=== PATIENT | male | born 1955 | race Caucasian/White ===

== ENCOUNTER 2024-07-09 08:00 | Outpatient (AMB) | payer MEDICARE, SELFPAY ==
--- OUTSIDE RECORDS SUMMARY | 2024-07-09 08:02 | XMS_ITS ---
Author Name [facility] Organization Unknown History of Medication Use Medication Directions Dispensed Refills Start Date End Date [facility] HYDROcodone-acetamin ophen (NORCO) 5-325 mg per tablet Take 1 tablet by mouth 4 times daily (every 6 hours) as needed for severe pain. Max Daily Amount: 4 tablets 10/26/2023 active diazepam (VALIUM) 2 MG tablet Take 1 tablet (2 mg total) by mouth 2 times a day. Take one tablet 1hr prior to scheduled MRI. Take a second tablet 30min prior to MRI if needed. 09/19/2023 active methocarbamol (ROBAXIN) 750 MG tablet Take 1 tablet (750 mg total) by mouth 4 (four) times a day as needed for muscle spasms. 02/13/2023 active senna-docusate (sennosides-docusate sodium) 8.6-50 MG Take 2 tablets by mouth nightly. While taking narcotics 02/13/2023 active sertraline (ZOLOFT) 25 MG tablet Take 25 mg by mouth every other day. 02/13/2023 active meloxicam (MOBIC) 15 MG tablet Take 1 tablet (15 mg total) by mouth daily. 02/13/2023 active HYDROmorphone (DILAUDID) 2 MG tablet Take 1-2 tablets (2-4 mg total) by mouth Every 4 (four) to 6 (six) hours as needed for moderate pain or severe pain. Max Daily Amount: 24 mg 02/13/2023 active acetaminophen (TYLENOL) 500 MG tablet Take 2 tablets (1,000 mg total) by mouth 4 times daily (every 6 hours) as needed for mild pain. 02/13/2023 active OMEprazole (PriLOSEC) 40 MG capsule Take 1 capsule (40 mg total) by mouth every morning before breakfast. 02/13/2023 active irbesartan-hydrochlo rothiazide (AVALIDE) 150-12.5 MG per tablet Take 1 tablet by mouth every morning. 02/13/2023 active buPROPion (WELLBUTRIN XL) 150 MG 24 hr tablet Take 150 mg by mouth every morning. Swallow whole; do not crush, chew, or divide. 02/13/2023 active betamethasone acetate-betamethason e sodium phosphate (CELESTONE) injection 3 mg 08/08/2023 completed aspirin enteric coated (ECOTRIN LOW STRENGTH) 81 MG EC tablet Take 1 tablet (81 mg total) by mouth 2 (two) times a day. 02/13/2023 active Problems Problem Status Onset Date Problem Type Date of Resoluti on Source Low back pain active 2023-02-11 ProblemAct [facility] T Retained orthopedic hardware active 2022-01-10 ProblemAct [facility] Pain of right hand active EncounterDiagnosisAct [facility]
--- NOTE | 2024-07-09 08:05 | MHC.OFFVIS ---
Vital Signs 07/09/24 08:10 Height 5 ft 9 in Weight 271 lb BMI 40.0 BP 128/70 Blood Pressure Location Lt brachial Position Sitting Pulse 62 Pulse Source Pulse Oximeter Pulse Oximetry (%) 95 Oxygen Delivery Method Room Air Intake Visit Reasons: 07/06 LVM+Let ENP-JASMYN Allergies lisinopril Allergy (Mild, Verified 07/09/24 08:23) Cough HPI Comments Details: 69 year old male presents for a sleep evaluation per PCP. He says he had a sleep study in 1998, and started using his CPAP immediately, as he was diagnosed with JASMYN. He sleeps on his side and doesn't move at all at night. Goes to bed at 11pm wakes at 6am, 1x bathroom. Denies acid reflux. He doesn't know if he snores, but does wake himself up as he gasps for air in the recliner during his occasional naps. His memory is good, at baseline, denies morning headaches but does have discomfort when he moves his neck. He has some balance and gait issues, r. knee surgery 2023. Denies leg pain,numbness and tingling. No vision changes, wears glasses. He uses nose pillows for breathing at night which dry out the sinuses, sometimes the eyes get itchy and ducts get blocked. He grinds his teeth and wears a retainer at night. Mood is very good, diet is good. Walks about 3 miles every 3rd day. [facility] Medical History (Updated 07/09/24 @ 09:13 by João Enamorado PA-C) Loose right total knee arthroplasty Sleep apnea Severe obesity Rosacea Right trigger finger Prediabetes Osteoarthritis of right knee Left ventricular hypertrophy Kidney stone Impaired fasting glucose Elevated serum creatinine ADHD Anxiety Adenomatous polyp Surgical History (Updated 07/09/24 @ 08:33 by CHETAN Powers) H/O colonoscopy Physical Exam Vital Signs: Last Vital Signs Pulse 62 07/09/24 08:10 BP 128/70 07/09/24 08:10 Pulse Ox 95 07/09/24 08:10 Oxygen Delivery Method Room Air 07/09/24 08:10 BMI result Body Mass Index 40.0 Const General: cooperative, comfortable and no acute distress Nutritional Appearance: obese (BMI is 40) Orientation/consciousness: patient oriented x3 HEENT Face and sinus: Yes normal facial exam and Yes face symmetric Mouth: other ([place] score of 4 ) Teeth and gingiva: other (Wide based tongue) Throat: Yes other Throat image: 1. Eyes Pupils: Equal, round and reactive pupils present Neck Neck: Yes other (Limited ROM on extension) Resp Effort & Inspection: normal respiratory effort and able to speak in complete sentences Neuro General: patient oriented x3 and moves all extremities Cranial nerves: Yes CN's II-XII intact bilaterally, Yes Facial sensation intact/muscles of mastication intact, Yes Equal, round and reactive pupils present, Yes Normal accommodation reflex present, Yes Bilaterally intact EOM present, Yes Nystagmus not present, Yes Normal facial strength present, Yes Midline tongue present, Yes Ability to bilaterally rotate head present (With Limited ROM to the L>R) and Yes Ability to bilaterally elevate shoulders present Cognition (Neuro): normal cognition Gait exam (Neuro): Normal gait present Motor exam (neuro): 5/5 motor strength present throughout, Pronator motor function not present and Normal motor muscle tone present throughout Deep tendon reflexes (DTR's): Right triceps reflex intensity grade: 2+, Left triceps reflex intensity grade: 2+, Rt Biceps (C5, C6): 2+, Left biceps reflex intensity grade: 2+, Right brachioradialis reflex intensity grade: 2+ and Left brachioradialis reflex intensity grade: 2+ Psych Appearance: grossly normal Speech and movement: Normal speech and movement present Affect: normal affect Attitude: cooperative Thought process: Normal thought process present Insight: Good insight present (Psych) Judgement: Good judgement present (Psych) Results Reviewed Results Reviewed: Notes from [facility] Primary Care CKD stage II Hyperlipdemia Hypertension LVHypertrophy Assessment & Plan Assessment & Plan (1) HTN (hypertension): Code(s): I10 - Essential (primary) hypertension Category: Medical Qualifiers: Hypertension type: secondary to other renal disorders Qualified Code(s): I15.1 - Hypertension secondary to other renal disorders (2) Fatigue due to sleep pattern disturbance: Code(s): R53.83 - Other fatigue; G47.9 - Sleep disorder, unspecified Category: Medical (3) Obesity: Code(s): E66.9 - Obesity, unspecified Category: Medical Qualifiers: Body mass index: BMI 40.0-44.9 Obesity type: unspecified obesity type Obesity classification: adult class 3 (BMI >= 40) Serious obesity comorbidity presence: unspecified whether serious comorbidity present Qualified Code(s): E66.813 - Obesity, class 3; E66.01 - Morbid (severe) obesity due to excess calories; Z68.41 - Body mass index [BMI] 40.0-44.9, adult Plan HST Sleep disturbances, JASMYN BMI is elevated will discuss weight management referral next visit. Anxiety Continue with regimen of antidepressants as needed, (Wellbutrin 150mg PO AM, Sertraline 25mg PO daily) Labs: TSH / B12/ Vit D/ CBC CMP A1c monitor prediabetes. Patient Education: #1 RF which is modifiable for Cardiovascular disease is hypertension, maintaining good blood pressure control. (BMI is elevated, discussed healthy food choices, diet and exercise with lifestyle modifications). Coding Level of Care Code New Pt Level 4 (24210) Diagnoses Hypertension secondary to other renal disorders I15.1 Hypertension type: secondary to other renal disorders Fatigue due to sleep pattern disturbance R53.83; G47.9 Class 3 severe obesity with body mass index (BMI) of 40.0 to 44.9 in adult, unspecified obesity type, unspecified whether serious comorbidity present E66.813; E66.01; Z68.41 Body mass index: BMI 40.0-44.9 Obesity type: unspecified obesity type Obesity classification: adult class 3 (BMI >= 40) Serious obesity comorbidity presence: unspecified whether serious comorbidity present Time Spent (min) 40 Sleep Questionnaire Difficulty falling asleep: No Difficulty staying asleep?: No Number of arousals: 0-1 Snoring: Yes Witnessed apneas: Yes Gasping arousals: Yes Nocturia: No GERD: No Vivid dreams: No Acting out dreams: No Abnormal behavior in sleep: No Abnormal movements in sleep: No Morning headaches: No Excessive daytime sleepiness: No Daytime naps: Yes Restless legs: No Hallucinations: No Sleep paralysis: No Sleep Study: Yes (1998) CPAP: Yes (yes) [place] Sleepiness Scale Questions Sitting and reading: would never doze Watching TV: slight chance of dozing Sitting inactive in a theater, movie etc.: slight chance of dozing As a passenger in a car for an hour without break: would never doze Lying down in the afternoon when circumstances permit: slight chance of dozing Sitting and talking to someone: would never doze Sitting quietly after lunch without alcohol: slight chance of dozing In a car, while stopped for a few minutes in the traffic: would never doze ESS < 10: normal, ESS > 12: pathologic: 4
[2024-07-09 08:10] VITALS: BP 128/70; PULSE 62; O2SAT 95; BMI 40.0
== END 2024-07-09 08:53 | disposition home or self-care (01) ==
PROVIDERS: PCP Internal Medicine; Visit Provider Physician Assistant Medical
DX: I15.1 Hypertension secondary to other renal disorders (principal); R53.83 Other fatigue; G47.9 Sleep disorder, unspecified; E66.813 Obesity, class 3; E66.01 Morbid (severe) obesity due to excess calories; Z68.41 Body mass index [BMI] 40.0-44.9, adult
CPT/HCPCS: 99204

== ENCOUNTER → 2024-07-09 08:00 | Outpatient (BNVA) | payer MEDICARE, SELFPAY | PROVIDERS: PCP Internal Medicine; Visit Provider Physician Assistant Medical | DX: I15.1 Hypertension secondary to other renal disorders (principal); R53.83 Other fatigue; G47.9 Sleep disorder, unspecified; E66.813 Obesity, class 3; Z68.41 Body mass index [BMI] 40.0-44.9, adult | CPT/HCPCS: 99202 ==

== ENCOUNTER → 2024-08-26 08:35 | Outpatient (REF) | payer MEDICARE, SELFPAY ==
--- OUTSIDE RECORDS SUMMARY | 2024-08-26 09:04 | XMS_ITS | Clinical Summary ---
Author Organization [facility] it Address [address] [place] [address] Care Team Providers Care Educational Institution President Name Role Phone Unavailable Primary Care Provider Unavailabl e Social History Tobacco Use Types Packs/Day Years Used Date Smoking Tobacco: Never Assessed Sex and Gender Information Value Date Recorded Sex Assigned at Not on file Legal Sex Male 1:56 AM EST Gender Identity Not on file Sexual Orientation Not on file Plan of Treatment Health Maintenance Due Date Last Done Comments DTaP,Tdap,and Td Vaccines (1 - Tdap) 1974 Pneumococcal Vaccine: 50+ Ye ars (1 of 1 - PCV) 2005 Zoster Vaccines (1 of 2) 2005 Abdominal Aortic Aneurysm (A AA) Screen 06/02/2022 Cholesterol Screening (Lipid Panel) 06/02/2022 Colorectal Cancer Screening: Colonoscopy 06/02/2022 Depression Screening 06/02/2022 Falls Risk Assessment 06/02/2022 Hepatitis C Screening 06/02/2022 Social Influencers of Health Screening 06/02/2022 COVID-19 Vaccine ( - 2023-2 5 season) 2024 Influenza Vaccine (#1) 2024 RSV Immunization Patients 60 + Years Old (1 - 1-dose 75+ series) 2030 HIB Vaccines Aged Out No longer eligi ble based on patient's age to complete this topic HPV Vaccines Aged Out No longer eligi ble based on patient's age to complete this topic Hepatitis A Vaccines Aged Out No long er eligible based on patient's age to complete this topic Hepatitis B Vaccines Aged Out No long er eligible based on patient's age to complete this topic IPV Vaccines Aged Out No longer eligi ble based on patient's age to complete this topic MMR Vaccines Aged Out No longer eligi ble based on patient's age to complete this topic Meningococcal ACWY Vaccine Aged Out N o longer eligible based on patient's age to complete this topic Meningococcal B Vacine Aged Out No lo nger eligible based on patient's age to complete this topic RSV Immunization Patients Un jana 20 months Aged Out No longer eligible b ased on patient's age to complete this topic Varicella Vaccines Aged Out No longer eligible based on patient's age to complete this topic
--- OUTSIDE RECORDS SUMMARY | 2024-08-26 09:04 | XMS_ITS | Encounter Summary ---
Author Organization [facility] Address [address] [place] [address] Care Team Providers Care Test Hole Driller Name Role Phone Vadim Conrad MD Primary Care Provider [phone] Aaron Gallegos MD Unavailable [phone] Juventino Oquendo MD Unavailable Encounter Details Date Type Department Care Team (Late st Contact Info) Description 01/23/2022 Erroneous Encounter [facility] DEPT [address] [place] [id number] Provider, MD Nyasia Social History Tobacco Use Types Packs/Day Years Used Date Smoking Tobacco: Never Smokeless Tobacco: Never Alcohol Use Standard Drinks/Week Comments Yes 2 (1 standard drink = 0.6 oz pur e alcohol) AUDIT-C Answer Date Recorded Q1: How often do you have a drink containing alc ohol? 2-3 times a week 12/25/2021 Q2: How many drinks containi ng alcohol do you have on a typical day when you are drinking? 1 or 2 12/25/2021 Q3: How often do you have si x or more drinks on one occasion? Never 12/25/2021 Sex and Gender Information Value Date Recorded Sex Assigned at Not on file Gender Identity Male 01/09/2022 6:13 AM EDT Sexual Orientation Not on file COVID-19 Exposure Response Date Recorded In the last 10 days, have yo u been in contact with someone who was confirmed or suspected to have Coronavirus/COVID-19? No / Unsure 01/10/2022 11:21 AM EDT documented as of this encounter Plan of Treatment Not on file documented as of this encounter Visit Diagnoses Not on filedocumented in this encounter Care Teams Test Hole Driller Relationship Specialty Start Date End Date Vadim Conrad MD [address] [place] [address] PCP - General Internal Medicine 12/25/21 Aaron Gallegos MD [address] [address] Surgery, Orthopedic 12/25/21 Juventino Oquendo MD [facility] [address] [address] Referring Provider Urology 12/28/21 documented as of this encounter
--- OUTSIDE RECORDS SUMMARY | 2024-08-26 09:04 | XMS_ITS | Clinical Summary ---
Author Organization [facility] Address [address] [place] [address] Care Team Providers Care Auxiliary Power Equipment Operator Name Role Phone Vadim Conrad MD Primary Care Provider [phone] Aaron Gallegos MD Unavailable [phone] Juventino Oquendo MD Unavailable Allergies Active Allergy Reactions Criticality Noted Date Comments Lisinopril Cough Low 12/25/2021 Medications Medication Sig Dispensed Refills Start Date End Date Status buPROPion (WELLBUTRIN XL) 150 MG 24 hr tablet Take 150 mg by mouth every morning. Swallow whole; do not crush, chew, or divide. Active irbesartan-hydrochl orothiazide (AVALIDE) 150-12.5 MG per tablet Take 1 tablet by mouth every morning. Active sertraline (ZOLOFT) 25 MG tablet Take 25 mg by mouth every other day. Active HYDROmorphone (DILAUDID) 2 MG tabletIndications:R etained orthopedic hardware Take 1-2 tablets (2-4 mg total) by mouth Every 4 (four) to 6 (six) hours as needed for moderate pain or severe pain. Max Daily Amount: 24 mg 42 tablet 01/11/2022 Active meloxicam (MOBIC) 15 MG tabletIndications:R etained orthopedic hardware Take 1 tablet (15 mg total) by mouth daily. 14 tablet 01/11/2022 Active OMEprazole (PriLOSEC) 40 MG capsuleIndications: Retained orthopedic hardware Take 1 capsule (40 mg total) by mouth every morning before breakfast. 14 capsule 01/11/2022 Active methocarbamol (ROBAXIN) 750 MG tabletIndications:R etained orthopedic hardware Take 1 tablet (750 mg total) by mouth 4 (four) times a day as needed for muscle spasms. 60 tablet 01/11/2022 Active senna-docusate (sennosides-docusat e sodium) 8.6-50 MGIndications:Retai michaelle orthopedic hardware Take 2 tablets by mouth nightly. While taking narcotics 60 tablet 01/11/2022 Active aspirin enteric coated (ECOTRIN LOW STRENGTH) 81 MG EC tabletIndications:R etained orthopedic hardware Take 1 tablet (81 mg total) by mouth 2 (two) times a day. 60 tablet 01/11/2022 Active acetaminophen (TYLENOL) 500 MG tabletIndications:R etained orthopedic hardware Take 2 tablets (1,000 mg total) by mouth 4 times daily (every 6 hours) as needed for mild pain. 112 tablet 01/11/2022 Active diazepam (VALIUM) 2 MG tabletIndications:T oracle applications analyst middle finger of right hand Take 1 tablet (2 mg total) by mouth 2 times a day. Take one tablet 1hr prior to scheduled MRI. Take a second tablet 30min prior to MRI if needed. 4 tablet 09/17/2023 Active HYDROcodone-acetami nophen (NORCO) 5-325 mg per tabletIndications:T oracle applications analyst middle finger of right hand Take 1 tablet by mouth 4 times daily (every 6 hours) as needed for severe pain. Max Daily Amount: 4 tablets 10 tablet 10/20/2023 Active Active Problems Problem Noted Date Diagnosed Date Low back pain 02/11/2023 Retained orthopedic hardware 01/10/2022 Family History Medical History Relation Name Comments Hypertrophic cardiomyopathy Mother Breast cancer Sister Relation Name Status Comments Father (Age 49) Mother Sister Alive Son Alive Social History Tobacco Use Types Packs/Day Years [...] AM EDT Sexual Orientation Not on file Last Filed Vital Signs Vital Sign Reading Time Taken Comments Blood Pressure 146/74 01/11/2022 9:49 AM EDT REKHA Alicia notified Pulse 86 01/11/2022 9:49 AM EDT Temperature 37.6 ??C (99.7 ??F) 01/11/2022 9 :49 AM EDT REKHA Alicia notified Respiratory Rate 20 01/11/2022 9:49 AM EDT Oxygen Saturation 94% 01/11/2022 9:4 9 AM EDT Inhaled Oxygen Concentration - - Weight 116 kg (255 lb) 01/10/2022 5:43 PM EDT Height 170.8 cm (5' 7.25 ) 01/10/2022 5 :43 PM EDT Body Mass Index 39.64 01/10/2022 5:43 PM EDT Plan of Treatment Health Maintenance Due Date Last Done Comments Hepatitis C Virus Screening 1955 DTaP/Tdap/Td Vaccines (1 - Tdap) 1974 Colonoscopy 2000 Pneumococcal Vaccines 50+ (1 of 1 - PCV) 2005 Zoster (Shingles) Vaccine (1 of 2) 2005 Influenza Vaccine 01/29/2024 05/09/2023, , 04/17/2021, Additional history exists COVID-19 Vaccine ( season) 2024 05/09/2023, 11/07/2021, 04/17/2021, Additional history exists RSV Vaccine 60 years and older and Patients (1 - 1-dose 75+ series) 2030 Hepatitis B Vaccines Aged Out No long er eligible based on patient's age to complete this topic Medical Devices Implanted Type Area Musical Instrument Supervisor Device Identifier Shelf Expiration Date Model / Serial / Lot 6191-1-001 Cement Bone Smpx P Radopq Fd Sterl - [id number] Implanted:Qty : 1 on 01/10/2022 by Aaron Gallegos MD at [facility] Cement Right: Knee [employer] 04/29/2024 [id number] / / [id number] Cement Bone Smpx P Radopq Fd Sterl - [id number] Implanted:Qty : 1 on 01/10/2022 by Aaron Gallegos MD at [facility] Cement Right: Knee [employer] 04/29/2024 6191-1-001 / / [id number] Component Patellar 35mm Rsrfc Sangita 2 Knee - [id number] Implanted:Qty : 1 on 01/10/2022 by Aaron Gallegos MD at [facility] Joint Prosthesis Right: Knee [employer] - DIV S 08/25/2031 [id number] / / [id number] Baseplate Tibial Legion 6 Knee Right Cement Male Taper Ti - [id number] Implanted:Qty : 1 on 01/10/2022 by Aaron Gallegos MD at [facility] Joint Prosthesis Right: Knee [employer] - DIV S 07/14/2031 [id number] / / [id number] Articular Insert Implanted:Qty : 1 on 01/10/2022 by Aaron Gallegos MD at [facility] Right: Knee [employer] 11/05/2031 [id number] / / [id number] Femoral Component Implanted:Qty : 1 on 01/10/2022 by Aaron Gallegos MD at [facility] Right: Knee [employer] 11/29/2030 [id number] / / [id number] Advance Directives Documents on File Type Date Recorded Patient Binder Cutter Hand Expl anation Advance Directive-Scan 02/11/2023 PT Advance Directive-Scan 02/11/2023 MEDIC AL HISTORY * Full Code (Latest Code Status on File) Date Activated Date Inactivated Comments 01/10/2022 6:19 PM * Full Code Date Activated Date Inactivated Comments 01/10/2022 11:02 AM 01/10/2022 6:19 PM Care Teams Auxiliary Power Equipment Operator Relationship Specialty Start Date End Date Vadim Conrad MD [address] [place] [address] PCP - General Internal Medicine 12/25/21 Aaron Gallegos MD 31 [facility] [address] [place] [address] Surgery, Orthopedic 12/25/21 Juventino Oquendo MD [address] [place] [address] Referring Provider Urology 12/28/21
--- OUTSIDE RECORDS SUMMARY | 2024-08-26 09:04 | XMS_ITS | Encounter Summary ---
Author Organization [facility] Address [address] [place] [address] Care Team Providers Care Landfill Gas Collection Operator Name Role Phone Vadim Conrad MD Primary Care Provider [phone] Aaron Gallegos MD Unavailable [phone] Juventino Oquendo MD Unavailable Reason for Referral * Outpatient Surgery (Routine) - Closed Specialty Diagnoses / Procedures Referred By Silvio wilkins Referred To Contact Hand Surgery Diagnoses Trigger middle finger of right hand Jimenez Conn MD [address] [place] [address] Referral ID Status Reason Start Date Expiration Date Visits Re quested Visits Authorized [id number] Closed 10/15/2023 10/15/2024 1 1 Question Answer Primary Procedure: [id number] - Trigger finger Additional Procedure(s): None Procedure: RIGHT MIDDLE FINGER STENOSING TENOSYNOVITIS RELEASE Surgery Date 10/21/2023 Laterality: Right Performing Location: [facility] Duration (Mins): 30 Admission: Outpatient Anesthesia: MAC Workers Comp? No Encounter Details Date Type Department Care Team (Late st Contact Info) Description 10/15/2023 [facility] Surg Order [facility] [address] [phone] Jimenez Conn MD [address] [address] Trigger middle finger of right hand (Primary Dx) Social History Tobacco Use Types Packs/Day Years [...] AM EDT Sexual Orientation Not on file documented as of this encounter Plan of Treatment Scheduled Referrals Name Type Priority Associated Diagnoses Order Schedule RIGHT MIDDLE FINGER STENOSING TENOSYNOVITIS RELEASE Outpatient Referral Routine Trigger middle finger of right hand Ordered: 10/15/2023 documented as of this encounter Visit Diagnoses Diagnosis Trigger middle finger of right hand- Primary documented in this encounter Care Teams Landfill Gas Collection Operator Relationship Specialty Start Date End Date Vadim Conrad MD [address] [place] [address] PCP - General Internal Medicine 12/25/21 Aaron Gallegos MD [address] [place] [address] [address] [place] [address] Surgery, Orthopedic 12/25/21 Juventino Oquendo MD [address] [place] [address] Referring Provider Urology 12/28/21 documented as of this encounter
--- OUTSIDE RECORDS SUMMARY | 2024-08-26 09:04 | XMS_ITS | Encounter Summary ---
Author Organization [facility] Address [address] [place] [address] Care Team Providers Care Home Hospice Rn Name Role Phone Vadim Conrad MD Primary Care Provider [phone] Aaron Gallegos MD Unavailable [phone] Juventino Oquendo MD Unavailable Encounter Details Date Type Department Care Team (Late st Contact Info) Description 10/21/2023 Scanned Document [facility] [address] [id number] Jimenez Conn MD [address] [place] [address] [place] [id number] Social History Tobacco Use Types Packs/Day Years [...] on filedocumented in this encounter Care Teams Home Hospice Rn Relationship Specialty Start Date End Date Vadim Conrad MD [address] [facility] [place] [address] PCP - General Internal Medicine 12/25/21 Aaron Gallegos MD 31 [facility] [address] [place] [address] Surgery, Orthopedic 12/25/21 Juventino Oquendo MD [address] [place] [address] Referring Provider Urology 12/28/21 documented as of this encounter
== END ==
LOC: HO.SL 08:35
PROVIDERS: PCP Internal Medicine; Visit Provider Physician Assistant Medical
DX: G47.30 Sleep apnea, unspecified (principal); R53.83 Other fatigue; G47.9 Sleep disorder, unspecified
CPT/HCPCS: 95806

== ENCOUNTER → 2024-08-26 09:05 | Outpatient (BNV) | payer MEDICARE, SELFPAY | PROVIDERS: PCP Internal Medicine; Visit Provider Psychiatry & Neurology Neurology | DX: G47.33 Obstructive sleep apnea (adult) (pediatric) (principal) | CPT/HCPCS: 95806 ==

== ENCOUNTER 2024-10-01 07:33 | Outpatient (AMB) | payer MEDICARE, SELFPAY ==
--- OUTSIDE RECORDS SUMMARY | 2024-10-01 07:35 | XMS_ITS | Clinical Summary ---
Author Organization [facility] Address [address] [place] [address] Care Team Providers Care Management Assistant Name Role Phone Vadim Conrad MD Primary Care Provider [phone] Aaron Gallegos MD Unavailable [phone] Juventino Oquendo MD Unavailable Allergies Active [...] 01/11/2022 Active diazepam (VALIUM) 2 MG tabletIndications:T cardiology rn middle finger of right hand Take 1 tablet (2 mg total) by mouth 2 times a day. Take one tablet 1hr prior to scheduled MRI. Take a second tablet 30min prior to MRI if needed. 4 tablet 09/17/2023 Active HYDROcodone-acetami nophen (NORCO) 5-325 mg per tabletIndications:T cardiology rn middle finger of right hand Take 1 [...] this topic Medical Devices Implanted Type Area Pilot Teacher Device Identifier Shelf Expiration Date Model / Serial / Lot 6191-1-001 Cement Bone Smpx P Radopq Fd Sterl - [id number] Implanted:Qty : 1 on 01/10/2022 by Aaron Gallegos MD at [facility] Cement Right: Knee [employer] - DIV [employer] 04/29/2024 6191-1-001 / / [id number] Cement Bone Smpx P Radopq Fd Sterl - [id number] Implanted:Qty : 1 on 01/10/2022 by Aaron Gallegos MD at [facility] Cement Right: Knee [employer] 04/29/2024 6191-1-001 / / [id number] Component Patellar 35mm Rsrfc Sangita 2 Knee - [id number] Implanted:Qty : 1 on 01/10/2022 by Aaron Gallegos MD at [facility] Joint Prosthesis Right: Knee [employer] - DIV S 08/25/2031 [id number] / / [id number] Baseplate Tibial Legion 6 Knee Right Cement Male Taper Ti - [id number] Implanted:Qty : 1 on 01/10/2022 by Aaron Gallegos MD at [facility] Joint Prosthesis Right: Knee [employer] - DIV S 07/14/2031 [id number] / / [id number] Articular Insert Implanted:Qty : 1 on 01/10/2022 by Aaron Gallegos MD at [facility] Right: Knee [employer] 11/05/2031 [id number] / / [id number] Femoral Component Implanted:Qty : 1 on 01/10/2022 by Aaron Gallegos MD at [facility] Right: Knee [employer] 11/29/2030 [id number] / / [id number] Advance Directives Documents on File Type Date Recorded Patient Contract Manager Expl anation Advance Directive-Scan 02/11/2023 PT Advance Directive-Scan 02/11/2023 MEDIC AL HISTORY * Full Code (Latest Code Status on File) Date Activated Date Inactivated Comments 01/10/2022 6:19 PM * Full Code Date Activated Date Inactivated Comments 01/10/2022 11:02 AM 01/10/2022 6:19 PM Care Teams Management Assistant Relationship Specialty Start Date End Date Vadim Conrad MD [address] [place] [address] PCP - General Internal Medicine 12/25/21 Aaron Gallegos MD [address] [address] Surgery, Orthopedic 12/25/21 Juventino Oquendo MD [address] [place] [address] Referring Provider Urology 12/28/21
--- OUTSIDE RECORDS SUMMARY | 2024-10-01 07:35 | XMS_ITS | Clinical Summary ---
Author Organization [address] [facility] Address [address] [place] [address] Phone Care Team Providers Care Loading Machine Operator Name Role Phone Shannon Aguirre MD Primary Care Provider Encounters Date Type Department Care Team Description 09/30/2024 2:45 PM EDT Evaluation [facility] [address] [address] Neema Chandler, OT Vertigo (Primary Dx) from Last 3 Months Social History Tobacco Use Types Packs/Day Years Used Date Smoking Tobacco: Never Assessed Sex and Gender Information Value Date Recorded Sex Assigned at Male 09/30/2024 3:05 PM EDT Legal Sex Male 1:56 AM EST Gender Identity Male 09/30/2024 3:05 PM EDT Sexual Orientation Straight 09/30/2024 3: 05 PM EDT Plan of Treatment Upcoming Encounters Date Type Department Care Team (Late st Contact Info) Description 10/12/2024 9:00 AM EDT [facility] [address] [address] Neema Chandler, OT Health Maintenance Due Date Last Done Comments Abdominal Aortic Aneurysm (AAA) Screen 06/02/2022 Cholesterol Screening (Lipid Panel) 06/02/2022 Colorectal Cancer Screening: Colonoscopy 06/02/2022 Depression Screening 06/02/2022 Falls Risk Assessment 06/02/2022 Hepatitis C Screening 06/02/2022 Medicare Annual Wellness Visit 06/02/2022 Social Influencers of Health Screening 06/02/2022 Hypertension/CHF/CAD Annual BMP Blood Test 09/30/2024 01/04/2022, 12/26/2021 Pneumococcal Vaccine: 50+ Years (2 of 2 - PCV) 03/22/2025 03/22/2024, 10/12/2018 RSV Immunization Adult Patients (1 - 1-dose 75+ series) 2030 DTaP,Tdap,and Td Vaccines (3 - Td or Tdap) 03/12/2031 03/12/2021, 07/12/2010 Zoster Vaccines Completed 02/28/2018, 10/28, 07/24/2017 COVID-19 Vaccine Completed 08/26/2024, 03/2023, 04/01/2022, Additional history exists Influenza Vaccine Completed 08/26/2024, , 04/01/2022, Additional history exists HIB Vaccines Aged Out No longer eligi [...] to complete this topic RSV Immunization Patients Under 20 months Aged Out No longer eligible based on patient's age to complete this topic Varicella Vaccines Aged Out No longer eligible based on patient's age to complete this topic Goals Goal Patient Goal Type Associated Problems Recent Progress Patient-Stated? Author LTG in 2-3 visits General No Mitzi Chandler, OT Note: Indep HEP w/ progression No subjective dizzy w/ repeat positional testing in clinic 3. No reported dizzy w/ routine activity at home (tilting/turning head to gaze at objects) Insurance [employer] MEDICARE Care Teams Loading Machine Operator Relationship Specialty Start Date End Date Shannon Aguirre MD [address] [place], [place] PCP - General Internal Medicine 09/30/24
--- OUTSIDE RECORDS SUMMARY | 2024-10-01 07:35 | XMS_ITS | Encounter Summary ---
Author Organization [facility] Address [address] [place] [address] Care Team Providers Care Ground Support Agent Name Role Phone Vadim Conrad MD Primary Care Provider [phone] Aaron Gallegos MD Unavailable [phone] Juventino Oquendo MD Unavailable Reason for Referral * Outpatient Surgery (Routine) - Closed Specialty Diagnoses / Procedures Referred By Silvio wilkins Referred To Contact Hand Surgery Diagnoses Trigger middle finger of right hand Jimenez Conn MD [address] [place] [address] Referral ID Status Reason Start Date Expiration Date Visits Re quested Visits Authorized [id number] Closed 10/15/2023 10/15/2024 1 1 Question Answer Primary Procedure: [id number] - Trigger finger Additional Procedure(s): None Procedure: RIGHT MIDDLE FINGER STENOSING TENOSYNOVITIS RELEASE Surgery Date 10/21/2023 Laterality: Right Performing Location: [facility] Duration (Mins): 30 Admission: Outpatient Anesthesia: MAC Workers Comp? No Encounter Details Date Type Department Care Team (Late st Contact Info) Description 10/15/2023 [facility] Surg Order [facility] [address] [phone] Jimenez Conn MD [address] [address] Trigger middle finger of right hand (Primary [...] Primary documented in this encounter Care Teams Ground Support Agent Relationship Specialty Start Date End Date Vadim Conrad MD [address] [place] [address] PCP - General Internal Medicine 12/25/21 Aaron Gallegos MD [address] [place] [address] [address] [place] [address] Surgery, Orthopedic 12/25/21 Juventino Oquendo MD [address] [place] [address] Referring Provider Urology 12/28/21 documented as of this encounter
--- OUTSIDE RECORDS SUMMARY | 2024-10-01 07:35 | XMS_ITS | Encounter Summary ---
Author Organization [facility] Address [address] [place] [address] Care Team Providers Care Facility Maintenance Manager Name Role Phone Vadim Conrad MD Primary Care Provider [phone] Aaron Gallegos MD Unavailable [phone] Juventino Oquendo MD Unavailable Encounter Details Date Type Department Care Team (Late st Contact Info) Description 01/23/2022 Erroneous Encounter [facility]PT [address] [place] [phone] Provider, MD Nyasia Social History Tobacco Use [...] on filedocumented in this encounter Care Teams Facility Maintenance Manager Relationship Specialty Start Date End Date Vadim Conrad MD [address] [place] [address] PCP - General Internal Medicine 12/25/21 Aaron Gallegos MD [address] [address] Surgery, Orthopedic 12/25/21 Juventino Oquendo MD [facility] [address] [address] Referring Provider Urology 12/28/21 documented as of this encounter
--- OUTSIDE RECORDS SUMMARY | 2024-10-01 07:35 | XMS_ITS | Encounter Summary ---
Author Organization [facility] Address [address] [place] [address] Care Team Providers Care Dog Pound Attendant Name Role Phone Shannon Aguirre MD Primary Care Provider Reason for Visit * Consultation (Routine) - Authorized Specialty Diagnoses / Procedures Referred By Contac t Referred To Contact Occupational Therapy Diagnoses Impaired functional mobility, balance, gait, and endurance Shannon Aguirre MD [address] [place], [place] Phone: tel: fax: Referral ID Status Reason Start Date Expiration Date Visits Requested Visits Authorized [id number] Authorized Specialty Services Required 09/30/2024 09/30/2025 20 20 Encounter Details Date Type Department Care Team (Late st Contact Info) Description 09/30/2024 2:45 PM EDT Evaluation [facility] Occupational [address] [address] Neema Chandler, OT Vertigo (Primary Dx) Social History Tobacco Use Types Packs/Day Years Used Date Smoking Tobacco: Never Assessed Sex and Gender Information Value Date Recorded Sex Assigned at Male 09/30/2024 3:05 PM EDT Legal Sex Male 1:56 AM EST Gender Identity Male 09/30/2024 3:05 PM EDT Sexual Orientation Straight 09/30/2024 3: 05 PM EDT documented as of this encounter Progress Notes * Neema Chandler OT - 09/30/2024 2:45 PM EDT Images from the original note were not included. [facility] - Outpatient OCCUPATIONAL THERAPY EVALUATION Date: 09/30/2024 Visit Number: 1 Patient Name: Gary Amaral Yi : 1955 Age: 69 y.o. Gender: male Diagnosis: ICD-10-CM ICD-9-CM 1. Vertigo R42 780.4 Date of Onset: No data found Referring Provider: Shannon Aguirre,* Insurance: Payor: [facility] MEDICARE / Plan: [facility] MEDICARE ADVANTAGE / Product Type: *No Product type* / Language: Speaks and understands Kosovan as preferred language with no rubber covering machine operator required PMH per pt: high chol controlled w/ med, anxiety, R TKR Precautions: none specified Is the patient at Risk for Falls: No Concurrent Services: No Concurrent Services History of Present Illness: Pt reports onset of dizziness approx 2 mos ago. Describes as momentary/lightheaded vs spinning. Did have 1 episode where he describes looking up and felt dizzy for 2 hours. Cannot id any pattern to symptoms. Has had negative workup to date (bloodwork, carotid screen); heis currently wearing a monitoring manager and has a stress test upcoming. 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 Prior Level of Function: Ind all activity OBJECTIVE General Observations/Comments: no signif guarding noted Cognition: Intact, good informant of symptoms Cervical ROM : Intact for eval process Negative vertebral art screen Static Balance testing Intact Romber EO, Romberg EC, sharpened Romberg Dynamic Balance Testing Intact for gait w/ unilateral horiz head turns, 180 direction change Mild imbalance/subjective dizzy gait w/ alternating horiz head turns Positional Testing R Hallpike: no nystag, mild subjective dizzy w/ return to sit L Hallpike: no nystag, no subjective dizzy w/ return to sit R Lofton-Daroff: no nystag, mild subjective dizzy w/ return to sit L lofton Daroff: no nystag, no subjective dizzyhw/ return to sit Special Tests: VOR to slow and rapid head thrust intact, tracking and saccades intact TREATMENT INTERVENTIONS: (This Date of Service) Trial of mod Angeline for R side x 2 reps. Instructed/performed BD habituation ex's, advised for HEP w/ handout and videolink provided Pain Reassessment: NA ASSESSMENT Gary Richmond is a 69 y.o. male presenting for outpatient occupational therapy with complaints of dizziness. Significant clinical findings include: able to reproduce mild/brief subjective symptoms wR post canal provocation suggestive mild post canal BPPV Skilled Occupational therapy is medically necessary to reduce dizziness. Rehabilitation Potential: Rehab Potential: Condition Has Potential to Improve Learning Needs: Were Patient Learning needs assessed Yes Learning Needs: Rehabilitation Techniques and Procedures Learning Preferences: Video Barriers to Learning: No Barriers to Learning Patient Education: [] Discussed, with patient and/or caregiver, the importance of therapy and appointment compliance in order to achieve goals in a timely manner. Education provided: HEP as above Education Provided To: Patient utilizing Explanation, Demonstration, Video, and Printed Material mode(s) of education Response to Education: Verbal Understanding and Demonstrated Skills GOALS Goals Addressed This Visit's Progress LTG in 2-3 visits Indep HEP w/ progression No subjective dizzy w/ repeat positional testing in clinic 3. No reported dizzy w/ routine activity at home (tilting/turning head to gaze at objects) PLAN POC Development/Review: Initial Evaluation; Participants: Patient Skilled Therapy Plan Required: YES- Reasons for Rehab and Medical Necessity -- Additional Comments:reduce subjective c/o dizziness Planned Therapy Interventions: Neuromuscular Re-education (34[address]) Planned Therapy Duration: 2-3 visits Recommended Consults: none currently, tbd based on response to rx BILLING (This Date of Service) TOTAL TREATMENT TIME: 55 Minutes Evaluation High Complexity Justification ::: High time effort (typically 45 minutes) spent [id number]-[id number] with the patient and/or family Documentation completed by [facility] [address] [place] [phone] Dept: [phone] Dept PATIENT NAME: Gary Richmond : 1955 Certification: This is to certify that the above named patient, who is under my care, requires skilled Therapy services as described in the above treatment plan. I further certify that the services outlined in this plan are skilled and medically necessary. I have reviewed this plan for rehabilitation services, and I recommend that these services continue to meet the above stated goals and plan. SIGNATURE: DATE Shannon Aguirre,* Referring provider documented in this encounter Plan of Treatment Upcoming Encounters Date Type Department Care Team (Late st Contact Info) Description 10/12/2024 9:00 AM EDT [facility] [address] [address] Neema Chandler OT documented as of this encounter Goals Goal Patient Goal Type Associated Problems Recent Progress Patient-Stated? Author LTG in 2-3 visits General No Mitzi Chandler OT Note: Indep HEP w/ progression No subjective dizzy w/ repeat positional testing in clinic 3. No reported dizzy w/ routine activity at home (tilting/turning head to gaze at objects) documented as of this encounter Visit Diagnoses Diagnosis Vertigo- Primary Dizziness and giddiness documented in this encounter Care Teams Dog Pound Attendant Relationship Specialty Start Date End Date Shannon Aguirre MD [address] [place], [place] PCP - General Internal Medicine 09/30/24 documented as of this encounter
--- NOTE | 2024-10-01 08:03 | MHC.OFFVIS ---
Vital Signs 10/01/24 08:04 Height 5 ft 9 in Weight 273 lb BMI 40.3 BP 122/70 Blood Pressure Location Lt brachial Position Sitting Pulse 67 Pulse Source Pulse Oximeter Pulse Oximetry (%) 97 Oxygen Delivery Method Room Air Intake Visit Reasons: Follow up JASMYN Intake Note: Patient presents follow up JASMYN. Sleep study in chart done on 08/26/24. Outreach Professional Required: No Accompanied by: Self / Same As Patient Allergies lisinopril Allergy (Mild, Verified 10/01/24 08:06) Cough HPI Comments Details: 69 year old male presents for a sleep evaluation per PCP. HST 09/13/2024 c/w severe sleep apnea AHI 40/hr Oxygen Reji 85%. He says he had a sleep study in 1998, and started using his CPAP immediately, however no one is monitoring his data. He sleeps on his side and doesn't move at all at night. Goes to bed at 11pm wakes at 6am, 1x bathroom. Denies acid reflux. He doesn't know if he snores, but does wake himself up as he gasps for air in the recliner during his occasional naps. His memory is good, at baseline, denies morning headaches but does have discomfort when he moves his neck. He has some balance and gait issues, feels off balance when getting out of a chair or looking down has episodes of vertigo lasting few seconds to minutes. Denies RLS symptoms of leg pain,numbness and tingling. No vision changes, wears progressive lens glasses and still difficult to adjust to far/ near vision, hearing is good, no impaction. He uses nose pillows for breathing at night which dry out the sinuses, sometimes the eyes get itchy and ducts get blocked takes allergy meds as needed. He grinds his teeth and wears a retainer at night. Mood has improved, zoloft stopped per dizziness, is on Wellbutrin now 150mg daily. Walks daily, doesn't drink enough water, is focusing on weight reduction. [facility] Medical History Loose right total knee arthroplasty Sleep apnea Severe obesity Rosacea Right trigger finger Prediabetes Osteoarthritis of right knee Left ventricular hypertrophy Kidney stone Impaired fasting glucose Elevated serum creatinine ADHD Anxiety Adenomatous polyp Surgical History H/O colonoscopy Physical Exam Vital Signs: Last Vital Signs Pulse 67 10/01/24 08:04 BP 122/70 10/01/24 08:04 Pulse Ox 97 10/01/24 08:04 Oxygen Delivery Method Room Air 10/01/24 08:04 BMI result Body Mass Index 40.3 Const General: cooperative, comfortable and no acute distress Nutritional Appearance: obese (BMI is 40) Orientation/consciousness: patient oriented x3 HEENT Face and sinus: Yes normal facial exam and Yes face symmetric Mouth: other ([place] score of 4 ) Teeth and gingiva: other (Wide based tongue) Throat: Yes other Eyes Pupils: Equal, round and reactive pupils present Neck Neck: Yes other (Limited ROM on extension) Resp Effort & Inspection: normal respiratory effort and able to speak in complete sentences Neuro General: patient oriented x3 and moves all extremities Cranial nerves: Yes CN's II-XII intact bilaterally, Yes Facial sensation intact/muscles of mastication intact, Yes Equal, round and reactive pupils present, Yes Normal accommodation reflex present, Yes Bilaterally intact EOM present, Yes Nystagmus not present, Yes Normal facial strength present, Yes Midline tongue present, Yes Ability to bilaterally rotate head present (With Limited ROM to the L>R) and Yes Ability to bilaterally elevate shoulders present Cognition (Neuro): normal cognition Gait exam (Neuro): Normal gait present Motor exam (neuro): 5/5 motor strength present throughout, Pronator motor function not present and Normal motor muscle tone present throughout Deep tendon reflexes (DTR's): Right triceps reflex intensity grade: 2+, Left triceps reflex intensity grade: 2+, Rt Biceps (C5, C6): 2+, Left biceps reflex intensity grade: 2+, Right brachioradialis reflex intensity grade: 2+ and Left brachioradialis reflex intensity grade: 2+ Psych Appearance: grossly normal Speech and movement: Normal speech and movement present Affect: normal affect Attitude: cooperative Thought process: Normal thought process present Insight: Good insight present (Psych) Judgement: Good judgement present (Psych) Assessment & Plan Assessment & Plan (1) Fatigue due to sleep pattern disturbance: Code(s): R53.83 - Other fatigue; G47.9 - Sleep disorder, unspecified Category: Medical (2) Obesity: Code(s): E66.9 - Obesity, unspecified Category: Medical Qualifiers: Obesity type: unspecified obesity type Obesity classification: adult class 3 (BMI >= 40) Serious obesity comorbidity presence: unspecified whether serious comorbidity present Body mass index: BMI 40.0-44.9 Qualified Code(s): E66.813 - Obesity, class 3; E66.01 - Morbid (severe) obesity due to excess calories; Z68.41 - Body mass index [BMI] 40.0-44.9, adult (3) Obesity (BMI 30-39.9): Code(s): E66.9 - Obesity, unspecified Category: Medical (4) Dizziness on standing: Code(s): R42 - Dizziness and giddiness Category: Medical (5) JASMYN (obstructive sleep apnea): Code(s): G47.33 - Obstructive sleep apnea (adult) (pediatric) Category: Medical Plan HST Sleep disturbances, severe JASMYN AHI is 40 and Oxygen Reji to 85%, will trial him on cPAP [id number]. BMI is 40, we discussed weight management strategies. Anxiety is better managed, personal issues resolved and Wellbutrin 150mg daily, discontinued Zoloft. Labs: Monitor for prediabets CBC CMP cholesterol was normal, A1c was 6.1. Dizziness Vestibular Therapy Neema Pineda. Holter monitor for cardiac abnormalities with BS, will request records. Patient Instructions: Sleep Hygiene provided: set a scheduled bedtime and wake time to help regulate the circadian rhythm and balance the release of pituitary hormones. Sleep in a dark room, temperatures below 68 degrees, and no devices n bed. Limit caffeinated products 6 hours prior to bed, and limit fluids 2-4 hours prior to bed. Gentle night yoga, diffusing essential oils, and playing soft music can be relaxing. For compliance use CPAP daily and more than 6-8 hours, wask mask daily, change filters as needed and refill reservoir as needed. Patient Education: #1 RF which is modifiable for Cardiovascular disease is hypertension, maintaining good blood pressure control. (BMI is elevated, discussed healthy food choices, diet and exercise with lifestyle modifications). Coding Level of Care Code Tele Est Pt Level 4 (52695) Diagnoses Fatigue due to sleep pattern disturbance R53.83; G47.9 Class 3 severe obesity with body mass index (BMI) of 40.0 to 44.9 in adult, unspecified obesity type, unspecified whether serious comorbidity present E66.813; E66.01; Z68.41 Obesity type: unspecified obesity type Obesity classification: adult class 3 (BMI >= 40) Serious obesity comorbidity presence: unspecified whether serious comorbidity present Body mass index: BMI 40.0-44.9 Obesity (BMI 30-39.9) E66.9 Dizziness on standing R42 JASMYN (obstructive sleep apnea) G47.33 Time Spent (min) 30 Comment Improving
[2024-10-01 08:04] VITALS: BP 122/70; PULSE 67; O2SAT 97; BMI 40.3
== END 2024-10-01 08:44 | disposition home or self-care (01) ==
LOC: HO.HSMS 07:34
PROVIDERS: PCP Internal Medicine; Visit Provider Physician Assistant Medical
DX: R53.83 Other fatigue (principal); G47.9 Sleep disorder, unspecified; E66.813 Obesity, class 3; E66.01 Morbid (severe) obesity due to excess calories; Z68.41 Body mass index [BMI] 40.0-44.9, adult; E66.9 Obesity, unspecified; R42 Dizziness and giddiness; G47.33 Obstructive sleep apnea (adult) (pediatric)
CPT/HCPCS: 99214

== ENCOUNTER → 2024-10-01 07:33 | Outpatient (BNVA) | payer MEDICARE, SELFPAY | PROVIDERS: PCP Internal Medicine; Visit Provider Physician Assistant Medical | DX: G47.33 Obstructive sleep apnea (adult) (pediatric) (principal); R53.83 Other fatigue; G47.9 Sleep disorder, unspecified; E66.813 Obesity, class 3; E66.01 Morbid (severe) obesity due to excess calories; R42 Dizziness and giddiness; Z68.41 Body mass index [BMI] 40.0-44.9, adult | CPT/HCPCS: 99212 ==

== ENCOUNTER 2024-10-29 13:08 | Outpatient (AMB) | payer MEDICARE, SELFPAY ==
--- NOTE | 2024-10-29 13:08 | MHC.OFFVIS ---
Vital Signs 10/29/24 13:10 Height 5 ft 9 in Intake Visit Reasons: f/u for sleep study titration questions Intake Note: Patient presents Telephone visit to talk about titration study Allergies lisinopril Allergy (Mild, Verified 10/29/24 13:08) Cough HPI Comments Details: 69 year old male with severe JASMYN calls for a tele-health appointment f/u today. HST 09/13/2024 c/w severe sleep apnea AHI 40/hr Oxygen Kai 85%. He started using his new machine a few weeks ago and noticed the pressures are set incorrectly from [id number], he tried to adjust the pressures however is not able to do this by himself. He says the machine blows on his face so lightly that he is not able to feel the pressure at all, and his AHI is consistently showing as being >10/hour. He called the company and they would like him to come in for a titration study , however he does not think he needs a titration study, he just needs his pressures to be adjusted to the recommended Auto pap settings per his HST on . We discussed the need for titraiton as he has severe JASMYN and his AHI was 40/hr with oxygen kai to 85%. He says he has an older machine and that machine is something he can use in the interim while awaiting his pressures to be adjusted back to [id number] as he is comfortable with his old machine. His old machine will not be able to send data to the [employer] rishi, for compliance and he wants us to know he is compliant and monitors his AHI daily. CPAP RX is writtten today and will be [facility] to [facility] for adjustment of his APAP to [id number] and f/u for compliance, if he is not able to maintain AHI under 5/hr we will send him for titration in the future. [facility], [facility] Medical History Loose right total knee arthroplasty Sleep apnea Severe obesity Rosacea Right trigger finger Prediabetes Osteoarthritis of right knee Left ventricular hypertrophy Kidney stone Impaired fasting glucose Elevated serum creatinine ADHD Anxiety Adenomatous polyp Surgical History H/O colonoscopy Telehealth Telehealth Telehealth Platform: Telephone Location of provider rendering services: practice address Location of patient: address on file Patient Identification confirmed using: Name, : Yes Telehealth method: voice only Patient verbally consented to treatment: Yes Patient verbally consented to billing insurance company: Yes Patient informed of any privacy concerns related to visit: Yes Minutes spent on Phone/Video with Pt.: 20 Results Reviewed Results Reviewed: HST AHI is 40/hr and oxygen Kai to 85%. Assessment & Plan Assessment & Plan (1) JASMYN (obstructive sleep apnea): Code(s): G47.33 - Obstructive sleep apnea (adult) (pediatric) Category: Medical Plan JASMYN AHI is 40/hr and oxygen kai to 85%, APAP pressures are set incorrectly on his machine. Will send new RX for his APAP pressures to be adjusted to 5-25fnJ84. Patient Instructions: Patient Education: Use CPAP therapy as directed accordingly for a minimum of 4-6 hours per night If you experience any difficulties with your machine reach out to your cpap provider, and or C for replacements, adjustments of masks, or pressure settings. Download the [employer] rishi to monitor your own sleep cycle nightly. Write down your questions and lets discuss them. Wash the mask daily,replace hoses, change filters, fill your reservoir with distilled water as needed. Coding Level of Care Code Tele New Pt Level 3 (95614) Diagnoses JASMYN (obstructive sleep apnea) G47.33 Time Spent (min) 20
--- OUTSIDE RECORDS SUMMARY | 2024-10-29 13:30 | XMS_ITS | Clinical Summary ---
Author Organization [address] [facility] Address [address] [place] [address] Phone Care Team Providers Care Chef Manager Name Role Phone Shannon Aguirre MD Primary Care Provider Encounters Date Type Department Care Team Description 10/12/2024 9:00 AM EDT Treatment [facility] Occup[facility] Therapy [address] [address] Neema Chandler, OT Vertigo (Primary Dx) 09/30/2024 2:45 PM EDT Evaluation [facility] Occupational Therapy [address] [place] [phone] Neema Chandler, OT Vertigo (Primary Dx) from Last 3 Months Social History Tobacco Use Types Packs/Day Years Used Date Smoking Tobacco: Never Assessed Sex and Gender Information Value Date Recorded Sex Assigned at Male 09/30/2024 3:05 PM EDT Legal Sex Male 1:56 AM EST Gender Identity Male 09/30/2024 3:05 PM EDT Sexual Orientation Straight 09/30/2024 3: 05 PM EDT Plan of Treatment Health Maintenance Due Date Last Done Comments Abdominal Aortic Aneurysm (AAA) Screen 06/02/2022 Cholesterol Screening (Lipid Panel) 06/02/2022 Colorectal Cancer Screening: Colonoscopy 06/02/2022 Depression Screening 06/02/2022 Falls Risk Assessment 06/02/2022 Hepatitis C Screening 06/02/2022 Medicare Annual Wellness Visit 06/02/2022 Social Influencers of Health Screening 06/02/2022 Hypertension/CHF/CAD Annual BMP Blood Test 09/30/2024 01/04/2022, 12/26/2021 COVID-19 Vaccine ( season) 2025 08/26/2024, 05/09/2023, 04/01/2022, Additional history exists Pneumococcal Vaccine: 50+ Years (2 of 2 - PCV) 03/22/2025 03/22/2024, 10/12/2018 RSV Immunization Adult Patients (1 - 1-dose 75+ series) 2030 DTaP,Tdap,and Td Vaccines (3 - Td or Tdap) 03/12/2031 03/12/2021, 07/12/2010 Zoster Vaccines Completed 02/28/2018, 10/28, 07/24/2017 Influenza Vaccine Completed 08/26/2024, , 04/01/2022, Additional [...] age to complete this topic Meningococcal B Vaccine Aged Out No l onger eligible based on patient's age to complete this topic RSV Immunization Patients Under 20 months Aged Out No longer eligible based on patient's age to complete this topic Varicella Vaccines Aged Out No longer eligible based on patient's age to complete this topic Goals Goal Patient Goal Type Associated Problems Recent Progress Patient-Stated? Author LTAngy in 2-3 visits General No change(2024 9:30 AM EDT) No Neema Chandler, OT Note: Indep HEP w/ progression No subjective dizzy w/ repeat positional testing in clinic 3. No reported dizzy w/ routine activity at home (tilting/turning head to gaze at objects) Insurance [employer] MEDICARE Care Teams Chef Manager Relationship Specialty Start Date End Date Shannon Aguirre MD [address] [place], [place] PCP - General Internal Medicine 09/30/24
--- OUTSIDE RECORDS SUMMARY | 2024-10-29 13:30 | XMS_ITS | Encounter Summary ---
Author Organization [facility] Address [address] [place] [address] Care Team Providers Care Surgical Instrument Maker Name Role Phone Vadim Conrad MD Primary Care Provider [phone] Aaron Gallegos MD Unavailable [phone] Juventino Oquendo MD Unavailable Encounter Details Date Type Department Care Team (Late st Contact Info) Description 10/21/2023 Scanned Document [facility] [address] [phone] Jimenez Conn MD [address] [place] [address] [place] [address] Social History Tobacco Use Types Packs/Day Years [...] at Not on file Legal Sex Male 11:31 PM EDT Gender Identity Male 01/09/2022 6:13 AM EDT Sexual Orientation Not on file documented as of this encounter Plan of Treatment Not on file documented as of this encounter Visit Diagnoses Not on filedocumented in this encounter Care Teams Surgical Instrument Maker Relationship Specialty Start Date End Date Vadim Conrad MD [address] [place] [address] PCP - General Internal Medicine 12/25/21 Aaron Gallegos MD [address] [address] Surgery, Orthopedic 12/25/21 Juventino Oquendo MD [address] [place] [address] Referring Provider Urology 12/28/21 documented as of this encounter
--- OUTSIDE RECORDS SUMMARY | 2024-10-29 13:30 | XMS_ITS | Clinical Summary ---
Author Organization [facility] Address [address] [place] [address] Care Team Providers Care Drilling Field Specialist Name Role Phone Vadim Conrad MD Primary Care Provider [phone] Aaron Gallegos MD Unavailable [phone] Juventino Oquendo MD Unavailable Allergies Active Allergy Reactions Criticality Noted Date Comments Lisinopril Cough Low 12/25/2021 Medications buPROPion (WELLBUTRIN XL) 150 MG 24 hr tablet Take 150 mg by mouth every morning. Swallow whole; do not crush, chew, or divide. Active irbesartan-hydr ochlorothiazide (AVALIDE) 150-12.5 MG per tablet Take 1 tablet by mouth every morning. Active sertraline (ZOLOFT) 25 MG tablet Take 25 mg by mouth every other day. Active HYDROmorphone (DILAUDID) 2 MG tabletIndicatio ns:Retained orthopedic hardware Take 1-2 tablets (2-4 mg total) by mouth Every 4 (four) to 6 (six) hours as needed for moderate pain or severe pain. Max Daily Amount: 24 mg 42 tablet 2 Active meloxicam (MOBIC) 15 MG tabletIndicatio ns:Retained orthopedic hardware Take 1 tablet (15 mg total) by mouth daily. 14 tablet 2 Active OMEprazole (PriLOSEC) 40 MG capsuleIndicati ons:Retained orthopedic hardware Take 1 capsule (40 mg total) by mouth every morning before breakfast. 14 capsule 2 Active methocarbamol (ROBAXIN) 750 MG tabletIndicatio ns:Retained orthopedic hardware Take 1 tablet (750 mg total) by mouth 4 (four) times a day as needed for muscle spasms. 60 tablet 2 Active senna-docusate (sennosides-doc usate sodium) 8.6-50 MGIndications:R etained orthopedic hardware Take 2 tablets by mouth nightly. While taking narcotics 60 tablet 2 Active aspirin enteric coated (ECOTRIN LOW STRENGTH) 81 MG EC tabletIndicatio ns:Retained orthopedic hardware Take 1 tablet (81 mg total) by mouth 2 (two) times a day. 60 tablet 2 Active acetaminophen (TYLENOL) 500 MG tabletIndicatio ns:Retained orthopedic hardware Take 2 tablets (1,000 mg total) by mouth 4 times daily (every 6 hours) as needed for mild pain. 112 tablet 2 Active diazepam (VALIUM) 2 MG tabletIndicatio ns:Trigger middle finger of right hand Take 1 tablet (2 mg total) by mouth 2 times a day. Take one tablet 1hr prior to scheduled MRI. Take a second tablet 30min prior to MRI if needed. 4 tablet 4 Active HYDROcodone-jeanie taminophen (NORCO) 5-325 mg per tabletIndicatio ns:Trigger middle finger of right hand Take 1 tablet by mouth 4 times daily (every 6 hours) as needed for severe pain. Max Daily Amount: 4 tablets 10 tablet 4 Active Active Problems Problem Noted Date Diagnosed [...] this topic Medical Devices Implanted Type Area Reporting Lead Device Identifier Shelf Expiration Date Model / Serial / Lot 6191-1-001 Cement Bone Smpx P Radopq Fd Sterl - [id number] Implanted:Qt y: 1 on 01/10/2022 by Aaron Gallegos MD at [facility] Cement Right: Knee SONIA [employer]ANIOMAXILLOFACIAL - 04/29/2024 [id number] / / [id number] Cement Bone Smpx P Radopq Fd Sterl - [id number] Implanted:Qt y: 1 on 01/10/2022 by Aaron Gallegos MD at [facility] Cement Right: Knee [employer] - 04/29/2024 [id number] / / [id number] Component Patellar 35mm Rsrfc Sangita 2 Knee - [id number] Implanted:Qt y: 1 on 01/10/2022 by Aaron Gallegos MD at [facility] Joint Prosthesis Right: Knee [employer] 08/25/2031 [id number] / / [id number] Baseplate Tibial Legion 6 Knee Right Cement Male Taper Ti - [id number] Implanted:Qt y: 1 on 01/10/2022 by Aaron Gallegos MD at [facility] Joint Prosthesis Right: Knee [employer] 07/14/2031 [id number] / / [id number] Articular Insert Implanted:Qt y: 1 on 01/10/2022 by Aaron Gallegos MD at [facility] Right: Knee [employer] 11/05/2031 [id number] / / [id number] Femoral Component Implanted:Qt y: 1 on 01/10/2022 by Aaron Gallegos MD at [facility] Right: Knee [employer] 11/29/2030 [id number] / / [id number] Insurance [facility] MED[facility]ARE [facility] MEDICARE [facility] MEDICARE Advance Directives Documents on File Type Date Recorded Patient Test Development Engineer Expl anation Advance Directive-Scan 02/11/2023 PT Advance Directive-Scan 02/11/2023 MEDIC AL HISTORY * Full Code (Latest Code Status on File) Date Activated Date Inactivated Comments 01/10/2022 6:19 PM * Full Code Date Activated Date Inactivated Comments 01/10/2022 11:02 AM 01/10/2022 6:19 PM Care Teams Drilling Field Specialist Relationship Specialty Start Date End Date Vadim Conrad MD [address] [place] [address] PCP - General Internal Medicine 12/25/21 Aaron Gallegos MD 31 [facility] [address] [place] [address] Surgery, Orthopedic 12/25/21 Juventino Oquendo MD [address] [place] [address] Referring Provider Urology 12/28/21
--- OUTSIDE RECORDS SUMMARY | 2024-10-29 13:30 | XMS_ITS | Encounter Summary ---
Author Organization [facility] Address [address] [place] [address] Care Team Providers Care Career Development Facilitator Name Role Phone Vadim Conrad MD Primary Care Provider [phone] Aaron Gallegos MD Unavailable [phone] Juventino Oquendo MD Unavailable Reason for Referral * Outpatient Surgery (Routine) - Closed Specialty Diagnoses / Procedures Referred By Silvio wilkins Referred To Contact Hand Surgery Diagnoses Trigger middle finger of right hand Jimenez Conn MD [address] [place] [address] Phone: tel: fax: Referral ID Status Reason Start Date Expiration Date Visits Re quested Visits Authorized [id number] Closed 10/15/2023 10/15/2024 1 1 Question Answer Primary Procedure: [id number] - Trigger finger Additional Procedure(s): None Procedure: RIGHT MIDDLE FINGER STENOSING TENOSYNOVITIS RELEASE Surgery Date 10/21/2023 Laterality: Right Performing Location: [facility] Duration (Mins): 30 Admission: Outpatient Anesthesia: MAC Workers Comp? No Encounter Details Date Type Department Care Team (Late st Contact Info) Description 10/15/2023 OA Surg Order [facility] [address] [phone] Jimenez Conn MD [address] [place] [address] Trigger middle finger of right hand (Primary [...] Primary documented in this encounter Care Teams Career Development Facilitator Relationship Specialty Start Date End Date Vadim Conrad MD [address] [place] [address] PCP - General Internal Medicine 12/25/21 Aaron Gallegos MD [address] [place] [address] Surgery, Orthopedic 12/25/21 Juventino Oquendo MD [address] [place] [address] Referring Provider Urology 12/28/21 documented as of this encounter
--- OUTSIDE RECORDS SUMMARY | 2024-10-29 13:30 | XMS_ITS | Encounter Summary ---
Author Organization [facility] Address [address] [place] [address] Care Team Providers Care Alum Mixer Name Role Phone Vadim Conrad MD Primary Care Provider [phone] Aaron Gallegos MD Unavailable [phone] Juventino Oquendo MD Unavailable Encounter Details Date Type Department Care Team (Late st Contact Info) Description 01/23/2022 Erroneous Encounter [facility] CONVERSION DEPT [address] [place] [phone] Provider, MD Nyasia Social History Tobacco Use [...] on filedocumented in this encounter Care Teams Alum Mixer Relationship Specialty Start Date End Date Vadim Conrad MD [address] [place] [address] PCP - General Internal Medicine 12/25/21 Aaron Gallegos MD [address] [place] [address] Surgery, Orthopedic 12/25/21 Juventino Oquendo MD [address] [place] [address] Referring Provider Urology 12/28/21 documented as of this encounter
== END 2024-10-29 13:56 | disposition home or self-care (01) ==
LOC: HO.HSMS 13:10
PROVIDERS: PCP Internal Medicine; Visit Provider Physician Assistant Medical
DX: G47.33 Obstructive sleep apnea (adult) (pediatric) (principal)
CPT/HCPCS: 99213

== ENCOUNTER → 2024-10-29 13:08 | Outpatient (BNVA) | payer MEDICARE, SELFPAY | PROVIDERS: PCP Internal Medicine; Visit Provider Physician Assistant Medical | DX: Z13.89 Encounter for screening for other disorder (principal) ==

== ENCOUNTER 2025-01-04 07:39 | Outpatient (AMB) | payer MEDICARE, SELFPAY ==
--- OUTSIDE RECORDS SUMMARY | 2025-01-04 07:42 | XMS_ITS ---
Author Name [facility] Organization Unknown History of Medication Use Medication Directions Dispensed Refills Start Date End Date Stat betamethasone acetate-betamethason e sodium phosphate (CELESTONE) injection 3 mg 3 mg, Intra-articular, Once, On Fri08/06/23 at 0900, For 1 dose, NOT FOR IV OR EPIDURAL USE. 08/06/2023 08/06/2023 completed acetaminophen (TYLENOL) 500 MG tablet Take 2 tablets (1,000 mg total) by mouth 4 times daily (every 6 hours) as needed for mild pain. 01/11/2022 active aspirin enteric coated (ECOTRIN LOW STRENGTH) 81 MG EC tablet Take 1 tablet (81 mg total) by mouth 2 (two) times a day. 01/11/2022 active OMEprazole (PriLOSEC) 40 MG capsule Take 1 capsule (40 mg total) by mouth every morning before breakfast. 01/11/2022 active senna-docusate (sennosides-docusate sodium) 8.6-50 MG Take 2 tablets by mouth nightly. While taking narcotics 01/11/2022 active irbesartan-hydrochlo rothiazide (AVALIDE) 150-12.5 MG per tablet Take 1 tablet by mouth every morning. active sertraline (ZOLOFT) 25 MG tablet Take 25 mg by mouth every other day. active Allergies Allergen Reaction Severity Comment Documented Date Source Statu s LISINOPRIL COUGH 12/25/2021 [facility] active Problems Problem Status Onset Date Problem Type Date of Resoluti on Source Pain of right hand active EncounterDiagnosisAct [facility] Retained orthopedic hardware active 2022-01-10 ProblemAct [facility] Low back pain active 2023-02-11 ProblemAct [facility] T Encounters Encounter Type Encounter Reason Primary Diagnosis Location Date Ambulatory [facility] 04/12/2024 Ambulatory Pain in right hand Pain in right hand [facility] 04/12/2024 Ambulatory Trigger finger, right middle finger Trigger finger, right middle finger [facility] 11/05/2023 Ambulatory MODIFY Trigger finger, right middle finger [facility] 10/21/2023 Ambulatory Pain Pain [facility] 10/15/2023 Ambulatory Trigger finger, right middle finger Trigger finger, right middle finger [facility] 09/17/2023 Ambulatory Pain in right finger(s) Pain in right finger(s) [facility] 08/06/2023 Ambulatory Trigger finger, right middle finger Trigger finger, right middle finger [facility] 08/06/2023 Ambulatory Low back pain, unspecified Low back pain, unspecified [facility] 02/11/2023 Ambulatory Low back pain, unspecified Low back pain, unspecified [facility] 02/11/2023 Inpatient Presence of functional implant, unspecified [facility] 01/10/2022 Ambulatory Encounter for preprocedural laboratory examination [facility] 01/08/2022 Ambulatory Encounter for ot her preprocedural examination [facility] 12/26/2021 Care Team Organization Name Specialty Phone Email Start Date End Da yamile [facility] 10/16/2023 [facility] 10/15/2023 [facility] Dahlia GAYTAN Primary Care 01/10/2022 09/15/2024 [facility] JOSIANE GAYTAN Primary Care 12/26/2021 01/10/2022
--- OUTSIDE RECORDS SUMMARY | 2025-01-04 07:42 | XMS_ITS | Clinical Summary ---
Author Organization 175 [facility] Address [address] [place] [address] Phone Care Team Providers Care Fence Repairman Name Role Phone Shannon Aguirre MD Primary Care Provider Encounters Date Type Department Care Team Description 10/12/2024 9:00 AM EDT Treatment [facility] [address] [phone] Neema Chandler, OT Vertigo (Primary [...] 2025 08/26/2024, 05/09/2023, 04/01/2022, Additional history exists Influenza Vaccine (#1) 2025 , 05/09/2023, 04/01/2022, Additional history exists Pneumococcal Vaccine: 50+ Years (2 of 2 - PCV) 03/22/2025 03/22/2024, 10/12/2018 RSV Immunization Adult Patients (1 - 1-dose 75+ series) 2030 DTaP,Tdap,and Td Vaccines (3 - Td or Tdap) 03/12/2031 03/12/2021, 07/12/2010 Zoster Vaccines Completed 02/28/2018, 10/28, 07/24/2017 HIB Vaccines Aged Out No longer eligi [...] objects) Insurance [employer] MED[employer] Care Teams Fence Repairman Relationship Specialty Start Date End Date Shannon Aguirre MD [address] [place], [place] PCP - General Internal Medicine 09/30/24
--- OUTSIDE RECORDS SUMMARY | 2025-01-04 07:42 | XMS_ITS | Encounter Summary ---
Author Organization [facility] [place] Address [address] [place] [address] Care Team Providers Care Grain Farmworker Name Role Phone Vadim Conrad MD Primary Care Provider [phone] Aaron Gallegos MD Unavailable [phone] Juventino Oquendo MD Unavailable Encounter Details Date Type Department Care Team (Late st Contact Info) Description 10/21/2023 Scanned Document [facility] [address] [phone] Jimenez Conn MD [address] [place] [address] [place] [address] Social History Tobacco Use Types Packs/Day Years [...] on filedocumented in this encounter Care Teams Grain Farmworker Relationship Specialty Start Date End Date Vadim Conrad MD [address] [place] [address] PCP - General Internal Medicine 12/25/21 Aaron Gallegos MD [address] [address] Surgery, Orthopedic 12/25/21 Juventino Oquendo MD [address] [place] [address] Referring Provider Urology 12/28/21 documented as of this encounter
--- NOTE | 2025-01-04 07:56 | A.OFFVIS_ITS ---
Vital Signs 01/04/25 07:59 Height 5 ft 9 in Weight 261 lb 4 oz BMI 38.6 BP 118/74 Blood Pressure Location Lt brachial Position Sitting Pulse 65 Pulse Source Pulse Oximeter Pulse Oximetry (%) 97 Oxygen Delivery Method Room Air Intake Visit Reasons: 3 mnts Intake Note: Patient presents follow up JASMYN. Compliance in chart(70/70 days, >=4hrs-99%, Average usage-7hrs 24min, Med pressure- 10.5, Med leaks-0.0, AHI-1.4) Allergies lisinopril Allergy (Mild, Verified 01/04/25 08:00) Cough HPI Comments Details: 69 year old male with severe JASMYN is here for a f/u of sleep apnea. HST 09/13/2024 c/w severe sleep apnea AHI 40/hr Oxygen Reji 85%. He is compliant with his cpap use daily. He started using his new machine a few weeks ago and he feels more of a difference now, as he feels more energetic when using his cpap machine. He tried to adjust the pressures however was unable to do this, however he likes his pressures now. He says the pressures are better now at Apap [id number]. He does not think he needs a titration study. He does need more supplies and would like new filters and masks. He washes his mask, hoses and changes the filters, fills reservoir with water daily. He denies RLS. He denies morning headaches. [facility] Medical History Loose right total knee arthroplasty Sleep apnea Severe obesity Rosacea Right trigger finger Prediabetes Osteoarthritis of right knee Left ventricular hypertrophy Kidney stone Impaired fasting glucose Elevated serum creatinine ADHD Anxiety Adenomatous polyp Surgical History H/O colonoscopy Physical Exam Vital Signs: Last Vital Signs Pulse 65 01/04/25 07:59 BP 118/74 01/04/25 07:59 Pulse Ox 97 01/04/25 07:59 Oxygen Delivery Method Room Air 01/04/25 07:59 BMI result Body Mass Index 38.6 Const General: cooperative, comfortable and no acute distress Nutritional Appearance: obese (BMI is 40) Orientation/consciousness: patient oriented x3 HEENT Face and sinus: Yes normal facial exam and Yes face symmetric Mouth: other ([place] score of 4 ) Teeth and gingiva: other (Wide based tongue) Throat: Yes other Eyes Pupils: Equal, round and reactive pupils present Neck Neck: Yes other (Limited ROM on extension) Resp Effort & Inspection: normal respiratory effort and able to speak in complete sentences Neuro General: patient oriented x3 and moves all extremities Cranial nerves: Yes Facial sensation intact/muscles of mastication intact, Yes Equal, round and reactive pupils present, Yes Normal accommodation reflex present, Yes Nystagmus not present, Yes Normal facial strength present, Yes Midline tongue present, Yes Ability to bilaterally rotate head present (With Limited ROM to the L>R) and Yes Ability to bilaterally elevate shoulders present Cognition (Neuro): normal cognition Motor exam (neuro): 5/5 motor strength present throughout and Normal motor muscle tone present throughout Psych Appearance: grossly normal Thought process: Normal thought process present Thought content: Normal thought content present Results Reviewed Results Reviewed: jasmyn compliance report September 2024- November 2024 Avg use is 7 hours and 24 min and >4 hours 70/70 days and 99% APAP pressures [id number] and Therapy at [id number] AHI is 1.4/hr. Assessment & Plan Assessment & Plan (1) Fatigue due to sleep pattern disturbance: Code(s): R53.83 - Other fatigue; G47.9 - Sleep disorder, unspecified Category: Medical Plan JASMYN continue using cpap and for more than >4 hours nightly. Pressures working well for him. Fatigue? r/o deficiencies -Will request recent labs and imaging of CT and MRI from [facility]. Orders: Orders Homocysteine Today G47.9 - Sleep disorder, unspecified, R53.83 - Other fatigue IRON PROFILE Today G47.9 - Sleep disorder, unspecified, R53.83 - Other fatigue Ferritin Today G47.9 - Sleep disorder, unspecified, R53.83 - Other fatigue Methylmalonic Acid Today G47.9 - Sleep disorder, unspecified, R53.83 - Other fatigue Patient Instructions: Sleep Hygiene provided: set a scheduled bedtime and wake time to help regulate the circadian rhythm and balance the release of pituitary hormones. Sleep in a dark room, temperatures below 68 degrees, and no devices n bed. Limit caffeinated products 6 hours prior to bed, and limit fluids 2-4 hours prior to bed. Gentle night yoga, diffusing essential oils, and playing soft music can be relaxing. Coding Level of Care Code Est Pt Level 4 (59113) Diagnoses Fatigue due to sleep pattern disturbance R53.83; G47.9 Time Spent (min) 25 Comment Improved compliance
[2025-01-04 07:59] VITALS: BP 118/74; PULSE 65; O2SAT 97; BMI 38.6
== END 2025-01-04 08:44 | disposition home or self-care (01) ==
LOC: HO.HSMS 07:40
PROVIDERS: PCP Internal Medicine; Visit Provider Physician Assistant Medical
DX: R53.83 Other fatigue (principal); G47.9 Sleep disorder, unspecified
CPT/HCPCS: 99214

== ENCOUNTER → 2025-01-04 07:39 | Outpatient (BNVA) | payer MEDICARE, SELFPAY | PROVIDERS: PCP Internal Medicine; Visit Provider Physician Assistant Medical | DX: G47.9 Sleep disorder, unspecified (principal); R53.83 Other fatigue; Z99.89 Dependence on other enabling machines and devices | CPT/HCPCS: 99212 ==